=== PATIENT | male | born 1990 | race Two or more races ===

== ENCOUNTER 2021-09-03 05:52 | Emergency (ER) | payer OTHER ==
[2021-09-03] MEDS ORDERED: Acetaminophen 325 MG Tab PO ONE (06:03)
[2021-09-03] MEDS ORDERED: Ibuprofen 600 MG Tab PO ONE (06:03)
--- NOTE | 2021-09-03 06:08 | EDM.PDOC ---
ED HPI GENERAL MEDICAL PROBLEM - General Chief Complaint: Upper Extremity Injury/Pain Stated Complaint: RIGHT SHOULDER INJURY Time Seen by Provider: 09/03/21 06:04 - History of Present Illness INITIAL COMMENTS - FREE TEXT/NARRATIVE: HISTORY AND PHYSICAL: History of present illness: This is a 30-year-old gentleman who presents ER today complaining of shoulder pain on the right side that occurred while at work. Patient reports that he was lifting heavy buckets on a routine basis and when the box he lifted resulted in severe pain to his right shoulder. Patient reports pain with any range of motion to the shoulder. Patient has any recent fevers, shakes, chills, nausea, vomiting, diarrhea. Review of systems: As per history of present illness and below otherwise all systems reviewed and negative. Past medical history: As per history of present illness and as reviewed below otherwise noncontributory. Surgical history: As per history of present illness and as reviewed below otherwise noncontributory. Social history: No reported history of drug abuse. Family history: As per history of present illness and as reviewed below otherwise noncontributory. Physical exam: This patient was seen and evaluated during the 2019 SARS-CoV-2 novel coronavirus pandemic period. Community viral transmission is ongoing at time of this encounter and the emergency department is operating under pandemic response procedures. Constitutional: Patient is oriented to person, place, and time. Appears well- developed and well-nourished. No distress. HEENT: Moist mucous membranes Head: Normocephalic and atraumatic Eyes: Right eye exhibits no discharge. Left eye exhibits no discharge. No scleral icterus Neck: Normal range of motion. No tracheal deviation present. Cardiovascular: Normal rate and regular rhythm. Pulmonary: Effort normal, no respiratory distress. Abdominal: No distention Musculoskeletal: Normal range of motion Neurologic: Alert and oriented to person, place and time. Skin: Spry, warm and dry. Psychiatric: Normal mood and affect. Behavior is normal. Judgment and thought content normal. Nursing note and vital signs have been reviewed Patient's ER physical exam is significant for tenderness to palpation to his right shoulder greatest at the AC joint. Patient has full range of motion intact but with pain. Diagnostics: Right shoulder x-ray: No acute fracture or dislocation Therapeutics: Ibuprofen/acetaminophen Assessment and plan: 30-year-old who presents ER today secondary to pain and discomfort to his right shoulder with range of motion and appears to be mechanical in nature. Patient likely has an AC injury to his right shoulder. Patient will get an x-ray. Patient be placed in a sling and given ibuprofen and acetaminophen. Patient's x-ray reveals no acute fracture or dislocation. Patient will be placed in a sling for comfort. DME note: Right shoulder sling ordered for treatment of likely right acromioclavicular ligament injury. Sling will assist with immobilizing the joint and ligament to allow for appropriate healing. Sling will need to be in place for 1 week. Reassessment at the time of disposition demonstrates that the patient is in no acute distress. The patient has remained stable throughout the entire ED visit and is without objective evidence for acute process requiring urgent intervention or hospitalization. The patient is stable for discharge, counseling is provided as documented above, discussed symptomatic treatment and specific conditions for return. I have spoken with the patient/caregiver and discussed todays findings, in loco tion to providing specific details for the plan of care. Questions are answered and there is agreement with the plan. Definitive disposition and diagnosis as appropriate pending reevaluation and review of above. Right Shoulder Pain Score (Numeric/FACES): 2 - Related Data Allergies Allergy/AdvReac Type Severity Reaction Status Date / Time No Known Allergies Allergy Verified 09/03/21 06:00 Home Meds: Home Meds Ibuprofen 600 mg PO Q6HR PRN #30 tablet 09/03/21 [Rx] Review of Systems - Review of Systems Review Of Systems: See Below ED EXAM, GENERAL - Physical Exam Exam: See Below Course - Vital Signs Last Recorded V/S: Last Vital Signs Temp 97.7 F 09/03/21 06:01 Pulse 81 09/03/21 06:01 Resp 16 09/03/21 06:01 BP 150/67 H 09/03/21 06:01 Pulse Ox 98 09/03/21 06:01 - Orders/Labs/Meds Orders: Active Orders 24 hr Category Date Time Status Shoulder Comp Rt [CR] Stat Exams 09/03/21 06:03 Ordered DME for Discharge [COMM] Stat Oth 09/03/21 06:03 Ordered Meds: Medications Discontinued Medications Generic Name Dose Route Start Last Admin Trade Name Freq PRN Reason Stop Dose Admin Acetaminophen 650 mg 09/03/21 06:03 09/03/21 06:08 Acetaminophen 325 Mg Tab PO 09/03/21 06:04 650 mg NOW ONE Administration Ibuprofen 600 mg 09/03/21 06:03 09/03/21 06:08 Ibuprofen 600 Mg Tab PO 09/03/21 06:04 600 mg ONETIME ONE Administration Departure - Departure Time of Disposition: Disposition: Home, Self-Care 01 Condition: Good Clinical Impression: Sprain of right shoulder - Discharge Information Prescriptions: Ibuprofen 600 mg PO Q6HR PRN #30 tablet PRN Reason: Pain Instructions: Shoulder Sprain, How to use a Sling, [id number] Referrals: PCP,None [Primary Care Provider] - Forms: ED Department Discharge Additional Instructions: You were seen and evaluated in ER today secondary to pain and discomfort in your right shoulder near your acromioclavicular joint. You will be placed in a sling in order to allow the ligaments in your shoulder to heal. You will be given a prescription for ibuprofen to help with pain and discomfort. You can also take [id number] acetaminophen to help with pain and discomfort. Please make an appointment to see the workman's comp doctors to further evaluate your injury. [facility] [place] [address] The following information is given to patients seen in the emergency department who are being discharged to home. This information is to outline your options for follow-up care. We provide all patients seen in our emergency department with a follow-up referral. The need for follow-up, as well as the timing and circumstances, are variable depending upon the specifics of your emergency department visit. If you don't have a primary care physician on staff, we will provide you with a referral. We always advise you to contact your personal physician following an emergency department visit to inform them of the circumstance of the visit and for follow-up with them and/or the need for any referrals to a consulting specialist. The emergency department will also refer you to a specialist when appropriate. This referral assures that you have the opportunity for follow-up care with a specialist. All of these measure are taken in an effort to provide you with optimal care, which includes your follow-up. Under all circumstances we always encourage you to contact your private physician who remains a resource for coordinating your care. When calling for follow-up care, please make the office aware that this follow-up is from your recent emergency room visit. If for any reason you are refused follow-up, please contact the [facility] Emergency Department at and asked to speak to the emergency department charge nurse. [facility] [address] [place] [id number] [facility] [address] [place] [id number] Sepsis Event Note (ED) - Evaluation Sepsis Screening Result: No Definite Risk - Focused Exam Vital Signs: Vital Signs Temp Pulse Resp BP Pulse Ox 09/03/21 06:01 97.7 F 81 16 150/67 H 98 - My Orders Last 24 Hours: My Active Orders 09/03/21 06:03 Shoulder Comp Rt [CR] Stat DME for Discharge [COMM] Stat - Assessment/Plan Last 24 Hours: My Active Orders 09/03/21 06:03 Shoulder Comp Rt [CR] Stat DME for Discharge [COMM] Stat
--- NOTE | 2021-09-03 07:05 | CR ---
INDICATION: Pain after work injury. TECHNIQUE: Right shoulder, three views. COMPARISON: None FINDINGS: Bones: Alignment is normal. No fractures or bone lesions. Joint spaces: Unremarkable. Soft tissues: Unremarkable. IMPRESSION: No fracture or malalignment. Dictated by Aamir Velez MD @ 09/03/2021 7:04:15 AM (Electronically Signed)
== END 2021-09-03 06:45 | disposition home or self-care (01) ==
LOC: MW.ED 05:52
DX: S43.401A Unspecified sprain of right shoulder joint, initial encounter (principal); X50.0XXA Overexertion from strenuous movement or load, initial encounter; Y92.89 Other specified places as the place of occurrence of the external cause; Y99.0 Civilian activity done for income or pay
CPT/HCPCS: 73030; 99283; A9270